=== PATIENT | female | born 1980 | race Caucasian/White ===

== ENCOUNTER → 2017-03-30 | Outpatient (CLI) | payer BC ==
[~2017-03-30] MED LIST: OMEP40CA PO; RIZA5TAB10 PO
[2017-03-30 10:55] LABS: BASO ABS # 0.07 K/uL (0-0.2); COMPLETE YES; EOS % 6.3 %; HEMATOCRIT 41.7 % (37-47); IG% 0.1 %; LYMPH ABS # 2.53 K/uL (1.2-3.4); MEAN CELL VOLUME 83.7 fL (80-100); MEAN CORPUSCULAR HEMOGLOBIN 28.1 pg (25-34); MEAN CORPUSCULAR HGB CONC 33.6 g/dl (32-36); MEAN PLATELET VOLUME 9.8 fL (7.4-10.4); MONO % 5.8 %; NEUT % 50.8 %; PLATELET COUNT 272 K/uL (130-400); RED BLOOD COUNT 4.98 M/uL (4.2-5.4); WHITE BLOOD COUNT 7.02 K/uL (4.8-10.8)
[2017-03-30 11:22] LABS: ALT/SGPT 18 U/L (12-78); AMYLASE 66 U/L (25-115); BLOOD UREA NITROGEN 12 mg/dl (7-18); BUN/CREATININE RATIO 15.2 (10-20); C-REACTIVE PROTEIN < 0.29 mg/dl (0-0.29); CALCIUM 9.2 mg/dl (8.5-10.1); CARBON DIOXIDE 25 mmol/L (21-32); CHLORIDE 106 mmol/L (98-107); CREATININE 0.81 mg/dl (0.60-1.20); GLUCOSE 84 mg/dl (70-99); POTASSIUM 4.1 mmol/L (3.5-5.1); SODIUM 137 mmol/L (136-145)
[2017-03-30 11:33] LABS: ALB/GLOB RATIO 1.2 (0.9-2); ALKALINE PHOSPHATASE 58 U/L (45-117); AST/SGOT 10 U/L (15-37)
[2017-04-02 16:35] LABS: IGA SERUM 252 mg/dL (81-463); TIS TRANS IGA 1 U/mL (<4)
== END | disposition home or self-care (01) ==
LOC: C.LAB1850 10:04
PROVIDERS: ATTEND Registered Nurse
DX: K21.0 Gastro-esophageal reflux disease with esophagitis (principal); R10.11 Right upper quadrant pain

== ENCOUNTER → 2017-03-30 | Day surgery (SDC) | payer BC ==
[2017-03-29 09:07] VITALS: BMI 28.0
[~2017-03-30] VITALS: Ht 154.9 cm; Wt 67.3 kg
[~2017-03-30] MED LIST changes: +LIDOCAINE HCL 2% 2 ML VIAL (20MG/ML) ONE; +MIDAZOLAM HCL 1 MG/ML 2ML VIAL ONE; +PROPOFOL IV EMULSION 10 MG/ML 20 ML VIAL IV ONE
[2017-03-30 11:05] VITALS: Ht 154.9 cm; Wt 67.3 kg
--- NOTE | 2017-03-30 12:19 | Endo History and Physical ---
History & Physical Date of Service: Mar 30, 2017. Chief Complaint: Abd pain & nausea Referring Physician: Dr. Cabral History of Present Illness 36 yo CF who presents for EGD secondary to abdominal pain and nausea. Past Surgical History Hx Cardiac Surgery: No Hx Internal Defibrillator: No Hx Pacemaker: No Hx Abdominal Surgery: Yes (APPENDECTOMY) Hx of Implantable Prosthesis: No Hx Post-Op Nausea and Vomiting: No Hx Cancer Surgery: No Hx Thoracic Surgery: No Hx Orthopedic: No Hx Urinary Tract Surgery: No Social History Smoking Status: Never Smoker Hx Substance Use: No Hx Alcohol Use: Yes (OCC SOCIAL) Allergies Coded Allergies: No Known Allergies (Verified , 03/30/17) Current Medications Reported Home Medications Medications Dose Route/Sig Max Daily Dose Days Date Category Dose Instructions Maxalt (Rizatriptan Benzoate) 5 Mg Tab 5 Mg PO UD PRN 03/29/17 Reported Prilosec (Omeprazole) 40 Mg Capcr 40 Mg PO QAM 11/01/13 Reported TAKE 30 MINUTES BEFORE THE FIRST MEAL OF THE DAY. Vital Signs Weight (Kilograms): 67.27 Height (Feet): 5 Height (Inches): 1 Date Time Temp Pulse Resp B/P (MAP) Pulse Ox O2 Delivery O2 Flow Rate FiO2 03/30/17 11:10 36.7 78 18 109/76 (87) 100 Room Air Physical Exam General Appearance: WD/WN, no apparent distress Respiratory/Chest: Auscultation: breath sounds normal Cardiovascular: Heart Auscultation: RRR Abdomen: Bowel Sounds: normal Inspection & Palpation: soft, non-distended, no tenderness, guarding & rebound Assessment and Plan Assessment: 36 yo CF who presents for EGD secondary to abdominal pain and nausea. Plan: Proceed with EGD
--- NOTE | 2017-03-30 12:39 | Discharge Instructions ---
Endoscopy Patient Instructions Date / Procedure(s) Performed Mar 30, 2017. EGD Allergy Information Coded Allergies: No Known Allergies (Verified , 03/30/17) Discharge Date / Findings Mar 30, 2017. Esophagitis s/p brushings Gastric antrum biopsies Medication Instructions OK to resume all medications today as prescribed Reported Home Medications Medications Dose Route/Sig Max Daily Dose Days Date Category Dose Instructions Maxalt (Rizatriptan Benzoate) 5 Mg Tab 5 Mg PO UD PRN 03/29/17 Reported Prilosec (Omeprazole) 40 Mg Capcr 40 Mg PO QAM 11/01/13 Reported TAKE 30 MINUTES BEFORE THE FIRST MEAL OF THE DAY. Provider Instructions Activity Restrictions - No exercising or heavy lifting for 24 hours. - Do not drink alcohol the day of the procedure. - Do not drive a car or operate machinery until the day after the procedure. - Do not make any important decisions or sign important papers in 24 hours after the procedure. Following Day: - Return to full activity which may include returning to work/school. Diet Start your diet with liquids and light foods (jello, soup, juice, toast). Then eat your usual diet if not nauseated. Treatment For Common After Affects For mild abdominal pain, bloating, or excessive gas: - Rest - Eat lightly - Lie on right side Follow-Up Information Follow-up with Dr. Cabral as scheduled Anesthesia Information What You Should Know You have had a procedure that required some medicine to reduce anxiety and discomfort. This treatment is called moderate sedation. After receiving the treatment, you may be sleepy, but you will be able to breathe on your own. The effects of the treatment may last for several hours. Follow these instructions along with Activity/Diet recommendations noted above: * Do NOT do anything where dizziness or clumsiness would be dangerous. * Rest quietly at home today, then you can be up and about tomorrow. * Have a responsible person stay with you the rest of today. * You may have had an I.V. today. If so, you may take the dressing off later today. Recommendations Call your doctor if: * Trouble breathing * Continuous vomiting for more than 24 hours * Temperature above 101 degrees * Severe abdominal pain or bloating * Pain not relieved by pain medicine ordered * There is increased drainage or redness from any incision * A large amount of rectal bleeding greater than 2-3 tablespoons. (If you had a polyp/s removed or have hemorrhoids, a small amount of blood - from the rectum is to be expected.) * You have any unanswered questions or concerns. IN THE EVENT OF A SERIOUS EMERGENCY, GO TO THE NEAREST EMERGENCY ROOM Your discharge instructions were prepared by provider Jay Evans. Patient Instructions Signature Page Petros Chonparveen Patient (or Guardian) Signature/Date: I have read and understand the instructions given to me by my caregivers. Caregiver/RN/Doctor Signature/Date: The above-named patient and/or guardian has received patient instructions on this date. + Original Patient Signature Page (only) stays with chart. Please make copy for patient.
--- NOTE | 2017-03-30 12:50 | GI REPORT ---
Procedure Date: 03/30/2017 11:57 AM Procedure: Upper GI endoscopy Indications: Epigastric abdominal pain, Nausea Medicines: Monitored Anesthesia Care Complications: No immediate complications. Estimated Blood Loss: Estimated blood loss: none. Procedure: Pre-Anesthesia Assessment: - Prior to the procedure, a History and Physical was performed, and patient medications and allergies were reviewed. The patient's tolerance of previous anesthesia was also reviewed. The risks and benefits of the procedure and the sedation options and risks were discussed with the patient. All questions were answered, and informed consent was obtained. Prior Anticoagulants: The patient has taken no previous anticoagulant or antiplatelet agents. ASA Grade Assessment: II - A patient with mild systemic disease. After reviewing the risks and benefits, the patient was deemed in satisfactory condition to undergo the procedure. After obtaining informed consent, the endoscope was passed under direct vision. Throughout the procedure, the patient's blood pressure, pulse, and oxygen saturations were monitored continuously. The scope was introduced through the mouth, and advanced to the second part of duodenum. The upper GI endoscopy was accomplished without difficulty. The patient tolerated the procedure well. Findings: Mildly severe esophagitis with no bleeding was found. Cells for cytology were obtained by brushing. The entire examined stomach was normal. Biopsies were taken with a cold forceps for histology. The examined duodenum was normal. Impression: - Mildly severe candidiasis esophagitis. Cells for cytology obtained. - Normal stomach. Biopsied. - Normal examined duodenum. Recommendation: - Resume previous diet. - Continue present medications. - Await pathology results. - Return to primary care physician as previously scheduled. Jay Evans DO 03/30/2017 12:50:08 PM This report has been signed electronically. Note Initiated On: 03/30/2017 11:57 AM I attest to the content of the Intraoperative Record and orders documented therein, exceptions below
[2017-03-30 13:07] VITALS: BP 107/70; PULSE 60; O2SAT 100
--- NOTE | 2017-03-30 14:15 | Anesthesiology Progress Note ---
Anesthesia Post Op Note Date & Time Mar 30, 2017 at 14:15 Vital Signs Pain Intensity: 0 Vital Signs Past 12 Hours Date Time Temp Pulse Resp B/P (MAP) Pulse Ox O2 Delivery O2 Flow Rate FiO2 03/30/17 13:07 60 18 107/70 (82) 100 Room Air 03/30/17 12:51 68 18 110/74 (86) 100 Room Air 03/30/17 12:36 68 18 121/66 (84) 100 Room Air 03/30/17 11:10 36.7 78 18 109/76 (87) 100 Room Air Notes Mental Status: alert / awake / arousable, participated in evaluation Pt Amnestic to Procedure: Yes Nausea / Vomiting: adequately controlled Pain: adequately controlled Airway Patency, RR, SpO2: stable & adequate BP & HR: stable & adequate Hydration State: stable & adequate Anesthetic Complications: no major complications apparent
== END | disposition home or self-care (01) ==
LOC: C.GI 10:27
PROVIDERS: ATTEND Internal Medicine
DX: R10.13 Epigastric pain (principal); R11.0 Nausea; Z90.49 Acquired absence of other specified parts of digestive tract; K21.0 Gastro-esophageal reflux disease with esophagitis; R10.11 Right upper quadrant pain

== ENCOUNTER → 2017-05-04 | Outpatient (CLI) | payer BC ==
[~2017-05-04] MED LIST changes: -LIDOCAINE HCL 2% 2 ML VIAL (20MG/ML) ONE; -MIDAZOLAM HCL 1 MG/ML 2ML VIAL ONE; -PROPOFOL IV EMULSION 10 MG/ML 20 ML VIAL IV ONE
--- NOTE | 2017-05-04 16:27 | DIAGNOSTIC IMAGING REPORT ---
CT OF THE SINUSES WITHOUT CONTRAST FUSION PROTOCOL CLINICAL HISTORY: Decreased sense of smell. Sinonasal congestion. COMPARISON STUDY: MRI of the brain September 30, 2009. TECHNIQUE: Axial images of the sinuses were obtained without IV contrast according to Fusion protocol. Coronal reformats were viewed. FINDINGS: Large water attenuation structures occupy the majority of the bilateral maxillary sinuses and likely reflect large mucus retention cysts which are increased in size when compared to MRI September 30, 2009. There are also secretions within the left maxillary and left sphenoid sinuses. There is mild to moderate polypoid mucosal thickening of the ethmoid sinuses. The right ostiomeatal complex is occluded as is the right sphenoethmoidal recess. There is no bony destruction. Cribriform plate is intact. Orbits are unremarkable. There is mild S-shaped deviation the nasal septum with spur formation. Mastoid air cells are clear. There is no fluid within the middle ears. Visualized portions of the intracranial contents are unremarkable this unenhanced exam. IMPRESSION: 1. Large water attenuation structures within the bilateral maxillary sinuses suggestive of large mucous retention cysts. 2. Moderate bubbly secretions within the left maxillary and sphenoid sinuses which can reflect acute sinusitis. 3. Mild to moderate mucosal thickening of the ethmoid sinuses with occluded right ostiomeatal complex and right sphenoethmoidal recess. Electronically signed by: Nicholas Espinosa M.D. 05/04/2017 4:26 PM Dictated Date/Time: 05/04/2017 3:59 PM
== END | disposition home or self-care (01) ==
LOC: C.CTS 15:42
DX: R43.8 Other disturbances of smell and taste (principal); J34.89 Other specified disorders of nose and nasal sinuses

== ENCOUNTER → 2017-06-06 | Outpatient (CLI) | payer BC ==
[2017-06-06 10:45] LABS: BASO % 0.8 %; BASO ABS # 0.05 K/uL (0-0.2); COMPLETE YES; EOS % 5.7 %; IG% 0.2 %; LYMPH % 34.1 %; MEAN CORPUSCULAR HEMOGLOBIN 28.2 pg (25-34); MEAN CORPUSCULAR HGB CONC 32.8 g/dl (32-36); MEAN PLATELET VOLUME 10.2 fL (7.4-10.4); MONO % 6.2 %; PLATELET COUNT 317 K/uL (130-400); WHITE BLOOD COUNT 6.45 K/uL (4.8-10.8)
[2017-06-06 10:53] LABS: PREG INTERNAL NEGATIVE QC NEG CLEAR BACKGROUND; PREG INTERNAL POSITIVE QC POS CONTROL LINE
[2017-06-06 10:56] LABS: PARTIAL THROMBOPLASTIN RATIO 1.1; PROTHROMBIN TIME (PATIENT) 10.3 SECONDS (9.0-12.0)
[2017-06-06 11:15] LABS: POTASSIUM 3.9 mmol/L (3.5-5.1)
== END | disposition home or self-care (01) ==
LOC: C.LABBC 07:34
DX: Z01.818 Encounter for other preprocedural examination (principal)

== ENCOUNTER → 2017-06-15 | Day surgery (SDC) | payer BC ==
[2017-06-05 15:33] VITALS: Ht 154.9 cm; Wt 67.3 kg
[~2017-06-15] VITALS: Ht 154.9 cm; Wt 67.3 kg
[~2017-06-15] MED LIST changes: +ATROPINE SULFATE 0.1 MG/ML 5ML SYR IV PRN; +CEFAZOLIN 2000 MG/60 ML D5W IV SCH; +DEXAMETHASONE SOD INJ 4 MG/ML VIAL ONE; +DiphenhydrAMINE HCL 50 MG/ML VIAL ONE; +EpHEDrine SULFATE INJ 50 MG/ML AMP IV PRN; +EpINEphrine INJ 1MG/ML AMP 1 MG/ML AMP ONE; +FENTANYL CITRATE INJ 50 MCG/1 ML 2 ML VIAL IV PRN; +FENTANYL CITRATE INJ 50 MCG/1 ML 2 ML VIAL ONE; +GLYCOPYRROLATE INJ 0.2 MG/ML VIAL ONE; +HYDROCODONE/ACETAMOPHEN 5/325MG TAB PO PRN; +LIDOCAINE 4% MPF SOAK 5 ML = 1 DOSE TOP ONE; +LIDOCAINE HCL 2% 2 ML VIAL (20MG/ML) ONE; +LIDOCAINE/EPINEPHRINE 1% INJ 50 ML VIAL ONE; +NEOSTIGMINE METHYLSULFATE 5 MG/5 ML SYR ONE; +NURSING VERBAL MED ORDER ONE; +ONDANSETRON INJ 2 MG/ML 2 ML VIAL IV PRN; +ONDANSETRON INJ 2 MG/ML 2 ML VIAL ONE; +OXYMETAZOLINE HCL 0.05% NA SPR 15 ML BTL PRN; +PROMETHAZINE HCL INJ 25 MG/ML 1 ML VIAL ONE; +PROPOFOL IV EMULSION 10 MG/ML 20 ML VIAL IV ONE
[2017-06-15] MEDS: LACTATED RINGER'S 1000ML 1,000 ML IV SCH ×2 (09:33→12:33)
--- NOTE | 2017-06-15 10:40 | History and Physical: Surg Cnt ---
History & Physical Date Jun 15, 2017. Chief Complaint SINUSITIS History of Present Illness The patient is a 36 year old female with complaints of RECURRENT ACUTE AND CHRONIC SINUSITIS REFRACTORY TO [employer]AL [employer] RX. Past Medical/Surgical History PMH: CRS, GERD PSH: S/P APPY, S/P BREAST BX, S/P CERVICAL CRYOSURGERY, S/P DENTAL EXTRACTIONS, S/P HYSTEROSCOPY, S/P TUBAL LIGATION Additional History Hepatic Disease: No Endocrine Disorder: No Kidney Disease: No Hypertension: No Heart Disease: No Bleeding Tendencies: No Infectious Diseases: No Allergies Coded Allergies: No Known Allergies (Verified , 06/15/17) Home Medications Scheduled Omeprazole (Prilosec), 40 MG PO QAM Scheduled PRN Rizatriptan Benzoate (Maxalt), 5 MG PO UD PRN for RN Physical Examination Skin: warm/dry, no rash Eyes: normal inspection, EOMI, sclerae normal ENT: + pertinent finding (MILD L DNS, MODERATE B ITH) Head: normocephalic, atraumatic Neck: supple, no adenopathy, trachea midline Respiratory/Chest: lungs clear, normal breath sounds, no respiratory distress Cardiovascular: regular rate, rhythm, no edema, no murmur Neurologic/Psych: no motor/sensory deficits, alert, normal reflexes, oriented x 3 Diagnosis CRS, DNS, B ITH Plan of Treatment IMAGE GUIDED B FESS AND INFERIOR TURBINATE REDUCTION, POSSIBLE SEPTOPLASTY
[2017-06-15] MEDS: OXYMETAZOLINE HCL 0.05% NA SPR 15 ML BTL SCH ×2 (10:50→10:56)
--- NOTE | 2017-06-15 12:01 | [facility] Operative Report ---
Operative Report Operative Date Jun 15, 2017. Pre-Operative Diagnosis Recurrent acute and chronic sinusitis, Bilateral Inferior Turbinate Hypertrophy, Left Merari Bullosa Post-Operative Diagnosis Same as preop Procedure(s) Performed Image-Guided Bilateral Endoscopic Sinus Surgery and Bilateral Inferior Turbinate Reduction, Left Merari Bullosa Resection Surgeon Dr. Urbina Nursing Program Coordinator Surgeon(s) None Estimated Blood Loss 25 mL Findings 1. L MERARI BULLOSA 2. B MAXILLARY SINUS MUCUS RETENTION CYSTS 3. POLYPOID MUCOSAL THICKENING B ETHMOID SINUSES 4. MILD MUCOSAL THICKENING B SPHENOID SINUSES 5. MODERATE B ITH 5. MILD B DNS (NON-OBSTRUCTIVE) Specimens A: Left maxillary sinus contents B: Right maxillary sinus contents I attest to the content of the Intraoperative Record and any orders documented therein. Any exceptions are noted below.
--- NOTE | 2017-06-15 12:04 | Discharge Instructions ---
Discharge Instructions Date of Service Jun 15, 2017. Admission Reason for Admission: Chronic Sinusitis Discharge Discharge Diagnosis / Problem: SAME Discharge Goals Goal(s): Therapeutic intervention Activity Recommendations Activity Limitations: as noted below LIGHT ACTIVITY AND NO NOSE BLOWING FOR 2 WEEKS; NO DRIVING WHILE ON NORCO . Current Hospital Diet Patient's current hospital diet: Discharge Diet Recommended Diet: Regular Diet Procedures Procedures Performed: Image-Guided Bilateral Endoscopic Sinus Surgery and Bilateral Inferior Turbinate Reduction, Left Angela Bullosa Resection Pending Studies Studies pending at discharge: no Medical Emergencies . Who to Call and When: Medical Emergencies: If at any time you feel your situation is an emergency, please call 911 immediately. . Non-Emergent Contact Non-Emergency issues call your: Surgeon . . "Provider Documentation" section prepared by Ervin Urbina. . VTE Core Measure Inpt VTE Proph given/why not?: SCD's
--- NOTE | 2017-06-15 12:31 | Anesthesia Progress Nt - [facility] ---
Anesthesia Post Op Note Date & Time Jun 15, 2017 at 12:31 Vital Signs Pain Intensity: 8.0 Vital Signs Past 12 Hours Date Time Temp Pulse Resp B/P (MAP) Pulse Ox O2 Delivery O2 Flow Rate FiO2 06/15/17 12:05 37.2 104 14 129/87 100 Humidified Oxygen 6 Mask 06/15/17 09:16 36.6 87 16 126/86 (99) 99 Room Air Notes Mental Status: alert / awake / arousable, participated in evaluation Pt Amnestic to Procedure: Yes Nausea / Vomiting: adequately controlled Pain: adequately controlled Airway Patency, RR, SpO2: stable & adequate BP & HR: stable & adequate Hydration State: stable & adequate Anesthetic Complications: no major complications apparent
--- NOTE | 2017-06-15 12:39 | OPERATIVE REPORT ---
DATE OF OPERATION: 06/15/2017 PREOPERATIVE DIAGNOSES: 1. Chronic rhinosinusitis. 2. Septal deviation. 3. Bilateral inferior turbinate hypertrophy. 4. Left rafael bullosa. POSTOPERATIVE DIAGNOSES: 1. Chronic rhinosinusitis. 2. Septal deviation. 3. Bilateral inferior turbinate hypertrophy. 4. Left rafael bullosa. PROCEDURES: Image guided bilateral endoscopic sinus surgery consisting of: 1. Bilateral maxillary antrostomies with tissue removal. 2. Bilateral complete ethmoidectomies. 3. Bilateral sphenoidotomies. 4. Endoscopic left rafael bullosa resection. 5. Bilateral inferior turbinate outfracture and turbinoplasties. SURGEON: Dr. Ervin Urbnia. ANESTHESIA: General endotracheal. ESTIMATED BLOOD LOSS: 25 mL. FINDINGS: 1. Left rafael bullosa. 2. Mild bilateral septal deviation, which appeared to be nonobstructive. 3. Moderate bilateral inferior turbinate hypertrophy. 4. Bilateral maxillary sinus mucous retention cyst. 5. Polypoid mucosal thickening involving the bilateral ethmoid sinuses. 6. Mild mucosal thickening involving the bilateral sphenoid sinuses. SPECIMENS: Right and left sinus contents for permanent pathological assessment. DRAINS: None. COMPLICATIONS: None. INDICATIONS FOR THE PROCEDURE: The patient is a pleasant 36-year-old female with a history of chronic rhinosinusitis with symptoms despite maximal medical therapy including systemic antibiotics and steroids. Posttreatment CT scan of the sinuses revealed bilateral maxillary, ethmoid and sphenoid sinus abnormalities as well as mild bilateral septal deviation and moderate bilateral inferior turbinate hypertrophy. The patient also has a left rafael bullosa. She presents for the above-mentioned procedures on an outpatient elective basis. DESCRIPTION OF PROCEDURE: After informed consent had been obtained from the patient, the patient was wheeled to the operating room and placed on the operating table in the supine position. Monitors were placed and after induction of general endotracheal anesthesia, the patient was prepped in the usual fashion for image guided endoscopic sinus surgery. The [employer] headset was placed over the forehead and was registered, calibrated and verified and used for the sphenoid sinus portions of the case primarily. Lidocaine and epinephrine pledgets were placed in the bilateral nasal cavities and pressure applied. The left-sided pledgets were first removed. A freer elevator was used to medialize the left middle turbinate. The left middle turbinate and uncinate process were injected with 1% lidocaine with 1:100,000 epinephrine. Lidocaine and epinephrine pledgets were then placed in the left middle meatus. The right side was then addressed in a similar fashion. The left-sided pledget was removed. A sickle knife was used to incise the middle turbinate longitudinally and the lateral half of the middle turbinate was removed using straight Steffen-Cut forceps and powered instrumentation in order to perform an endoscopic rafael bullosa resection. The uncinate process was then incised using a freer elevator and the uncinate process was removed using straight Steffen-Cut forceps and powered instrumentation. The natural ostium of the maxillary sinus was identified and this was enlarged anteriorly, inferiorly, and posteriorly using backbiting forceps and powered instrumentation. There was a large mucous retention cyst within the left maxillary sinus and the cyst wall was removed and sent for permanent pathological assessment. There was a thin serous fluid within the mucus retention cyst as well as mild amount of thick mucus as well. Care was taken to evacuate all of the mucus and serum as well as remove all of the mucous retention cyst wall. A complete ethmoidectomy was then performed using powered instrumentation. A transethmoid approach to the sphenoid sinus was undertaken and the natural ostium of the sphenoid sinus was enlarged medially and inferiorly using powered instrumentation. A lidocaine and epinephrine pledget was then placed in the left ethmoid cavity. The right side was then addressed in a similar fashion. There was not a rafael bullosa on the right side, but the middle turbinate was quite enlarged and therefore, the lateral half of the middle turbinate as well as the inferior 1/4 of the middle turbinate was removed using straight Steffen-Cut forceps and powered instrumentation. Similarly, there was a large mucous retention cyst and cyst wall was sent for permanent pathological assessment. Similarly, there was polypoid mucosal thickening involving the anterior and posterior ethmoid sinus during the complete ethmoidectomy. There was mild mucosal thickening involving the right sphenoid sinus. A Dan elevator was then used to infracture and subsequently outfracture the inferior turbinates bilaterally. These were injected with 1% lidocaine with 1:100,000 epinephrine. A 2.0-mm turbinate blade using powered instrumentation was then used to perform bilateral inferior turbinoplasties in a submucosal fashion. The sinonasal cavities were then suctioned. There was a mild amount of septal deviation, both to the right and the left. Into the right, it was anteriorly and did not appear to be obstructed. To the left, there was a bony septal spur and this was infractured using a Dan elevator, which greatly improved the left nasal airway posteriorly. Merogel was placed in the bilateral ethmoid cavities and middle meati. An orogastric tube was placed and the stomach was suctioned free of any stomach contents. This marked the end of the case. The patient tolerated the procedure well. There were no apparent complications. All the instrumentation was removed from the patient. The patient was extubated and transferred to recovery room in stable condition. I attest to the content of the Intraoperative Record and any orders documented therein. Any exception s are noted below.
[2017-06-15 13:36] VITALS: BP 100/68; PULSE 76; TEMP 37.3; O2SAT 98
== END | disposition home or self-care (01) ==
LOC: X.SURG 08:57
DX: J32.9 Chronic sinusitis, unspecified (principal); K21.9 Gastro-esophageal reflux disease without esophagitis; Z90.49 Acquired absence of other specified parts of digestive tract

== ENCOUNTER → 2018-01-14 | Outpatient (CLI) | payer BC ==
[~2018-01-14] MED LIST changes: -ATROPINE SULFATE 0.1 MG/ML 5ML SYR IV PRN; -CEFAZOLIN 2000 MG/60 ML D5W IV SCH; -DEXAMETHASONE SOD INJ 4 MG/ML VIAL ONE; -DiphenhydrAMINE HCL 50 MG/ML VIAL ONE; -EpHEDrine SULFATE INJ 50 MG/ML AMP IV PRN; -EpINEphrine INJ 1MG/ML AMP 1 MG/ML AMP ONE; -FENTANYL CITRATE INJ 50 MCG/1 ML 2 ML VIAL IV PRN; -FENTANYL CITRATE INJ 50 MCG/1 ML 2 ML VIAL ONE; -GLYCOPYRROLATE INJ 0.2 MG/ML VIAL ONE; -HYDROCODONE/ACETAMOPHEN 5/325MG TAB PO PRN; -LIDOCAINE 4% MPF SOAK 5 ML = 1 DOSE TOP ONE; -LIDOCAINE HCL 2% 2 ML VIAL (20MG/ML) ONE; -LIDOCAINE/EPINEPHRINE 1% INJ 50 ML VIAL ONE; -NEOSTIGMINE METHYLSULFATE 5 MG/5 ML SYR ONE; -NURSING VERBAL MED ORDER ONE; -ONDANSETRON INJ 2 MG/ML 2 ML VIAL IV PRN; -ONDANSETRON INJ 2 MG/ML 2 ML VIAL ONE; -OXYMETAZOLINE HCL 0.05% NA SPR 15 ML BTL PRN; -PROMETHAZINE HCL INJ 25 MG/ML 1 ML VIAL ONE; -PROPOFOL IV EMULSION 10 MG/ML 20 ML VIAL IV ONE
== END | disposition home or self-care (01) ==
LOC: C.PAPS 16:47
PROVIDERS: ATTEND Obstetrics & Gynecology
DX: Z01.419 Encounter for gynecological examination (general) (routine) without abnormal findings (principal)

== ENCOUNTER → 2018-01-21 | Outpatient (CLI) | payer BC ==
--- NOTE | 2018-01-21 08:38 | DIAGNOSTIC IMAGING REPORT ---
BILIARY ABDOMEN LIMITED CLINICAL HISTORY: 37 years-old Female presenting with RUQ PAIN. TECHNIQUE: Real-time grayscale and limited color Doppler ultrasound imaging of the abdomen limited to the right upper quadrant was performed. COMPARISON: 01/06/2015. FINDINGS: Pancreas: Visualized portions of the pancreatic head and body normal. Liver: Normal echogenicity and echotexture. No sonographic evidence of hepatic mass. Main portal vein patent with normal directional flow. Biliary: No intrahepatic biliary ductal dilatation. Common bile duct measures up to 4 mm in diameter. Gallbladder: No evidence of gallstones, gallbladder wall thickening, gallbladder distention, or pericholecystic fluid or inflammatory change. Right kidney: Normal in appearance without evidence of hydronephrosis. Ascites: None. Other: None. IMPRESSION: No cholelithiasis or biliary ductal dilatation. Electronically signed by: Chin Beltran M.D. 01/21/2018 8:37 AM Dictated Date/Time: 01/21/2018 8:35 AM
[2018-01-21 11:00] LABS: BASO % 0.7 %; BASO ABS # 0.05 K/uL (0-0.2); EOS % 5.4 %; EOS ABS # 0.39 K/uL (0-0.5); HEMATOCRIT 42.6 % (37-47); HEMOGLOBIN 14.3 g/dL (12.0-16.0); IG# 0.02 K/uL (0.00-0.02); LYMPH % 40.2 %; LYMPH ABS # 2.88 K/uL (1.2-3.4); MEAN CELL VOLUME 84.5 fL (80-100); MEAN CORPUSCULAR HEMOGLOBIN 28.4 pg (25-34); MEAN CORPUSCULAR HGB CONC 33.6 g/dl (32-36); MEAN PLATELET VOLUME 9.7 fL (7.4-10.4); MONO ABS # 0.36 K/uL (0.11-0.59); NEUT % 48.4 %; NEUT ABS # 3.46 K/uL (1.4-6.5); PLATELET COUNT 311 K/uL (130-400); RED CELL DISTRIBUTION WIDTH CV 13.8 % (11.5-14.5); RED CELL DISTRIBUTION WIDTH SD 42.7 fL (36.4-46.3); WHITE BLOOD COUNT 7.16 K/uL (4.8-10.8)
[2018-01-21 11:27] LABS: ALBUMIN 4.1 gm/dl (3.4-5.0); ALT/SGPT 21 U/L (12-78); AST/SGOT 12 U/L (15-37); BLOOD UREA NITROGEN 13 mg/dl (7-18); CALCIUM 8.8 mg/dl (8.5-10.1); CARBON DIOXIDE 30 mmol/L (21-32); CREATININE 0.83 mg/dl (0.60-1.20); GLUCOSE 82 mg/dl (70-99); LIPASE 168 U/L (73-393); POTASSIUM 3.7 mmol/L (3.5-5.1); SODIUM 139 mmol/L (136-145)
[2018-01-21 11:30] LABS: ALKALINE PHOSPHATASE 66 U/L (45-117); TOTAL PROTEIN 7.7 gm/dl (6.4-8.2)
== END | disposition home or self-care (01) ==
LOC: C.ULTRBC 08:07
PROVIDERS: ATTEND Registered Nurse
DX: R10.11 Right upper quadrant pain (principal)

== ENCOUNTER → 2018-01-30 | Outpatient (CLI) | payer BC ==
--- NOTE | 2018-01-30 13:31 | DIAGNOSTIC IMAGING REPORT ---
NUCLEAR GASTRIC EMPTYING STUDY HISTORY: Nausea. Vomiting. COMPARISON: Abdominal ultrasound 01/21/2018. TECHNIQUE: Following the oral administration of 1.2 mCi of technetium 99m sulfur colloid in egg sandwich and 8 ounces of water, static abdominal images are obtained anteriorly and posteriorly at 0 minutes, 1 hour, 2 hour, and 4 hour time intervals. Gastric emptying was calculated utilizing the geometric mean method. FINDINGS: There is approximately 81% activity remaining at the 1 hour time interval (normal is less than 90%), 47% remaining at the 2 hour time interval (normal is less than 60%), and 1% activity remaining at the 4 hour time interval (normal is less than 10%). IMPRESSION: No evidence for delayed gastric emptying. Electronically signed by: Geo Murillo M.D. 01/30/2018 1:30 PM Dictated Date/Time: 01/30/2018 1:29 PM
== END | disposition home or self-care (01) ==
LOC: C.NUCL 08:45
PROVIDERS: ATTEND Physician Assistant
DX: R11.2 Nausea with vomiting, unspecified (principal)

== ENCOUNTER → 2018-02-08 | Outpatient (CLI) | payer BC ==
[~2018-02-08] MED LIST changes: +SINCALIDE INJ 1.4 MCG in SODIUM CHLORIDE 0.9% 100ML 100 ML IV SCH
--- NOTE | 2018-02-08 15:18 | DIAGNOSTIC IMAGING REPORT ---
NUCLEAR HEPATOBILIARY SCAN WITH EJECTION FRACTION IMAGING CLINICAL HISTORY: Right upper quadrant abdominal pain. Nausea. COMPARISON STUDY: Abdominal ultrasound dated 01/21/2018.. TECHNIQUE: Dynamic images of the liver and anterior abdomen were obtained every 5 minutes for a total of 60 minutes following the IV administration of 5.4mCi of technetium 99m Choletec. 1.4 mcg of sincalide was then injected with additional images acquired every 5 minutes for 45 minutes to calculate the gallbladder ejection fraction. FINDINGS: The hepatobiliary scan shows prompt and homogeneous hepatic uptake. There is visualized activity within the intra and extrahepatic biliary tree at 10 minutes, and within the gallbladder at 50 minutes. There is normal biliary to bowel transit, with small bowel visualized by 30 minutes. On the sincalide imaging, the gallbladder ejection fraction was measured at 92%. IMPRESSION: 1. Unremarkable nuclear hepatobiliary scan. There is no scintigraphic evidence of cholecystitis. 2. The gallbladder ejection fraction measured 92% which is normal. Electronically signed by: Jamey Jenkins M.D. 02/08/2018 3:16 PM Dictated Date/Time: 02/08/2018 3:15 PM
== END | disposition home or self-care (01) ==
LOC: C.NUCL 12:31
PROVIDERS: ATTEND Physician Assistant
DX: R11.2 Nausea with vomiting, unspecified (principal); R10.11 Right upper quadrant pain

== ENCOUNTER 2022-11-28 02:37 | Observation (INO) ==
[2022-11-28] MEDS ORDERED: ONDANSETRON INJ 2 MG/ML 2 ML VIAL IV STA ×2 (03:02→04:41)
[2022-11-28] MEDS ORDERED: SODIUM CHLORIDE 0.9% 1000ML 1,000 ML IV STA (03:02)
[2022-11-28] MEDS ORDERED: KETOROLAC TROMETHAMINE 15 MG/ML VIAL IV STA (03:02)
[2022-11-28 03:18] LABS: Basophils # (auto) 0.06 K/uL (0-0.2); Basophils % (auto) 0.7 %; Eosinophils # (auto) 0.12 K/uL (0-0.50); Eosinophils % (auto) 1.3 %; Hematocrit (blood only) 41.5 % (37.0-47.0); Hemoglobin 14.1 g/dl (12.0-16.0); Immature Granulocytes # (auto) 0.03 K/uL (0.01-0.20); Immature Granulocytes % (auto) 0.3 %; Lymphocytes # (auto) 3.41 K/uL (1.2-3.4); Lymphocytes % (auto) 37.2 %; Mean Corpuscular Hemoglobin 29.1 pg (25.0-34.0); Mean Corpuscular Volume 85.6 fL (80.0-100.0); Mean Platelet Volume 9.8 fL (9.4-12.4); Monocytes # (auto) 0.54 K/uL (0.11-0.59); Monocytes % (auto) 5.9 %; Neutrophils % (auto) 54.6 %; Platelet Count 313 K/uL (130-400); RDW Coefficient of Variation 13.2 % (11.5-14.5); RDW Standard Deviation 41.2 fL (36.4-46.3); Red Blood Count 4.85 M/uL (4.20-5.40); White Blood Count 9.16 K/ul (4.8-10.8)
[2022-11-28 03:26] LABS: Appearance Urine Cloudy (Clear); Bacteria Urine Automated 1+ (Negative); Bilirubin Urine Negative (Negative); Blood Urine 3+ (Negative); Cast Urine Automated 0 /lpf (0-5); Color Urine Yellow; Epithelial Cell Urine Auto >30 /lpf (0-5); Glucose Urine UA Negative (Negative); Ketones Urine Negative (Negative); Leukocyte Esterase Urine Negative (Negative); Nitrite Urine Negative (Negative); Protein Urine Negative (Negative); RBC Urine Automated >30 /hpf (0-4); Specific Gravity Urine 1.025 (1.000-1.030); Urobilinogen Urine Negative (Negative); pH Urine 5.5 (4.5-7.5)
[2022-11-28 03:31] LABS: Albumin Level 5.1 gm/dl (3.4-5.0); BUN Creatinine Ratio 26.2 (10-20); Bilirubin,Total 0.3 mg/dl (0.2-1.0); Calcium 9.7 mg/dl (8.5-10.1); Creatinine Clr Calc Pharmacy 64.5 ml/min; Est GFR (African American) 78.2 ml/min; Est GFR (Non-African American) 67.5 ml/min; Globulin 2.6 gm/dl (2.5-4.0); Potassium 3.5 mmol/L (3.5-5.1); Total Protein 7.7 gm/dl (6.0-8.3)
[2022-11-28 03:32] LABS: Pregnancy Test, Serum Negative (Negative)
--- NOTE | 2022-11-28 03:54 | Emergency Department Note ---
ED Provider Note History of Present Illness Chief Complaint: Flank Pain Stated Complaint: LEFT FLANK PAIN Time Seen by Provider: 11/28/22 02:55 This 42-year-old female patient presents to the emergency department today via private vehicle for evaluation of left flank pain. Pain came on suddenly at approximately 115 this morning. The patient states it is associated with nausea but no vomiting. She denies any dysuria, urinary frequency, urinary hesitancy, hematuria. No abnormal vaginal bleeding or discharge. The patient states she had an ablation and has not had a period in several years. She denies any recent fever or illness. She denies history of similar symptoms. She had taken a Maxalt earlier in the evening and notes that does cause some urinary frequency, but has not noted this to be different than usual. She did take 2 Tylenol earlier in the evening due to some mild low back aching and notes no improvement in her symptoms Home Medications Medication Instructions Recorded Confirmed Type hydrocortisone 2.5 % topical 1 applic topical BID #28.35 grams 11/11/21 11/28/22 Rx ointment rizatriptan 10 mg tablet See Rx Instructions PO .COMPLEX 04/27/22 11/28/22 Rx #12 tabs dupilumab 300 mg/2 mL subcutaneous 300 mg (2 mL) subcut .COMPLEX 09/26/22 11/28/22 Rx syringe (Dupixent) NASAL POLYPS, SINUSITIS #4 mL topiramate 25 mg tablet 25 mg PO DAILY #30 tabs 09/26/22 11/28/22 Rx topiramate 50 mg tablet 50 mg PO HS #30 tabs 09/26/22 11/28/22 Rx pantoprazole 40 mg tablet,delayed 40 mg PO BID #180 tabs 11/10/22 11/28/22 Rx release Allergies Allergy/AdvReac Type Severity Reaction Status Date / Time No Known Drug Allergies Allergy Unknown Verified 11/28/22 02:51 Past Med/Surg History Medical History Chronic sinusitis GERD (gastroesophageal reflux disease) History of migraine Hx of thyroiditis monitoring. Hyperthyroidism no medications -- monitoring currently. following with [facility]. 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 Grandmother (Maternal) Diabetes Breast cancer Grandmother (Paternal) Cancer Aunt Thyroid nodule Other Hypertension No family history of adverse response to anesthesia No family history of bleeding disorder Denies family history of Ovarian cancer Crohn's disease Myocardial infarction Colorectal cancer Social History Smoking Status: Never smoker Second Hand Exposure: Yes ( A CHILD); Hx Alcohol Use: Yes Alcohol type: beer Alcohol Intake Frequency: Monthly or Less Alcohol Intake Frequency Comment: one a month maybe? 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 Feels Safe at Home: Yes Childhood Exposure to Second-Hand Smoke: Yes caffeine: Yes Dental Care, Regularly: Yes Physical Activity Frequency: Daily Physical Activity Frequency Comment: exercise work out at home 1 hr daily Seatbelt Use: always Sunscreen Use: Yes Assistive Devices: Contacts and Glasses Physical Exam Vital Signs Vital Signs - 24 hr 11/28/22 02:40 11/28/22 02:55 11/28/22 03:07 Temperature 36.3 C L Temperature Source Temporal Artery Scan Pulse Rate 103 H 92 H Pulse Rate [Finger] Respiratory Rate 24 Respiratory Effort / Characteristics Non-Labored Spontaneous Respiratory Depth Normal Blood Pressure 146/83 H Blood Pressure [Right Arm] Blood Pressure Mean 104 Blood Pressure Mean [Right Arm] Pulse Oximetry 100 100 Oxygen Delivery Method Room Air Room Air Sepsis Recent Fever Within 48 Hours No Sepsis New/Unexplained Change in Mental Status N/A Sepsis Action Taken by Nursing No Action Required 11/28/22 04:48 11/28/22 07:00 Temperature Temperature Source Pulse Rate Pulse Rate [Finger] 93 H 88 Respiratory Rate 20 18 Respiratory Effort / Characteristics Non-Labored Spontaneous Respiratory Depth Normal Blood Pressure Blood Pressure [Right Arm] 129/84 116/79 Blood Pressure Mean Blood Pressure Mean [Right Arm] 99 91 Pulse Oximetry 100 99 Oxygen Delivery Method Room Air Room Air Sepsis Recent Fever Within 48 Hours Sepsis New/Unexplained Change in Mental Status Sepsis Action Taken by Nursing VITALS: Vitals are noted on the nurse's note and reviewed by myself. Vital signs stable. GENERAL: This is a 42-year-old female, in no acute distress, nondiaphoretic, well-developed well-nourished. SKIN: The skin was without rashes, erythema, edema, or bruising. There is no tenting of the skin. Capillary refill less than 2 seconds. HEAD: Normocephalic atraumatic. EYES: Conjunctivae without injection, sclerae without icterus. NOSE: Patent, turbinates without inflammation or discharge. No sinus tenderness. MOUTH: Mucous membranes moist. Tonsils are not enlarged. Pharynx without eryth surjit or exudate. Uvula midline. Airway patent. Tongue does not deviate. NECK: Supple without nuchal rigidity. No lymphadenopathy. No JVD. HEART: Regular rate and rhythm without murmurs gallops or rubs. LUNGS: Clear to auscultation bilaterally without wheezes, rales or rhonchi. No retractions or accessory muscle use. ABDOMEN: Positive bowel sounds x 4. Soft, nontender, without masses or org anomegaly. Left CVA tenderness. No guarding or rebound tenderness. MUSCULOSKELETAL: No muscle atrophy, erythema, or edema noted. Full range of motion without joint tenderness in all extremities. No tenderness to palpation. Normal gait. Strength 5/5 throughout. NEURO: Patient was alert and oriented to person place and time. No focal neurological deficits. Course Course The patient was seen and evaluated as above. An order was placed for continuous cardiac monitoring. The monitor shows a normal sinus rhythm at a rate of 93 bpm. IV access obtained, labs drawn. Patient medicated with IV fluids, Zofran, Toradol. Imaging performed and reviewed by myself and radiologist as noted. Labs reviewed by myself. Patient continued to complain of pain. She noted the Toradol and Zofran did seem to help for a short time. She was medicated with acetaminophen and repeat dose of Zofran I reassessed the patient. She is tearful and complaining of persistent, severe pain. Patient was medicated with IV morphine I discussed the case with my attending. Recommended admission. Pt. agreeable. Pt. will be admitted to the [facility] group. I did speak with Dr. Billings who requested I speak with urology. I discussed the case with Dr. Figueredo. He did agree to consult on the patient. Administered Medications Morphine Sulfate (Morphine Sulfate 4 Mg/Ml 1 Ml Carp\Vial) 4 mg IV PRN PRN PRN Reason: Pain Stop: 12/12/22 06:10 Last Admin: 11/28/22 06:54 Dose: 4 mg Documented By: STEFANIA Discontinued Medications Sodium Chloride (Nss 1000ml) 1,000 mls @ 999 mls/hr IV .Q1H1M STA Stop: 11/28/22 04:02 Last Infusion: 11/28/22 04:42 Dose: 0 mls/hr Documented By: Admin: 11/28/22 03:12 Dose: 999 mls/hr Documented By: ISH Acetaminophen (Ofirmev) 1,000 mg in 100 mls @ 400 mls/hr IV NOW STA Stop: 11/28/22 04:55 Last Infusion: 11/28/22 05:00 Dose: 0 mls/hr Documented By: Admin: 11/28/22 04:45 Dose: 400 mls/hr Documented By: ISH Ketorolac Tromethamine (Ketorolac Tromethamine 15 Mg/Ml Vial) 15 mg IV NOW STA Stop: 11/28/22 03:03 Last Admin: 11/28/22 03:11 Dose: 15 mg Documented By: ISH Morphine Sulfate (Morphine Sulfate 4 Mg/Ml 1 Ml Carp\Vial) 4 mg IV NOW STA Stop: 11/28/22 05:43 Last Admin: 11/28/22 05:47 Dose: 4 mg Documented By: ISH Ondansetron HCl (Ondansetron Inj 2 Mg/Ml 2 Ml Vial) 4 mg IV NOW STA Stop: 11/28/22 03:03 Last Admin: 11/28/22 03:11 Dose: 4 mg Documented By: ISH Ondansetron HCl (Ondansetron Inj 2 Mg/Ml 2 Ml Vial) 4 mg IV NOW STA Stop: 11/28/22 04:42 Last Admin: 11/28/22 04:45 Dose: 4 mg Documented By: ISH Medical Decision Making Differential Diagnosis Renal colic, UTI, appendicitis, diverticulitis, mesenteric ischemia, aortic pathology, ovarian cyst, ovarian torsion, GERD, as well as other pathologies. Medical Records Attestation: I reviewed the patient's medical records. Home Medications was personally reviewed by me Laboratory Data No leukocytosis, anemia, thrombocytopenia. Renal, hepatic function, and electrolytes without significant abnormality. hCG negative. Lipase 28. Urinalysis appears to be contaminated specimen with greater than 30,000 epithelial cells, 1+ bacteria, 3+ blood 11/28/22 02:55 11/28/22 02:55 Lab Results 11/28/22 11/28/22 11/28/22 Range/Units 02:55 02:55 02:55 WBC 9.16 (4.8-10.8) K/ul RBC 4.85 (4.20-5.40) M/uL Hgb 14.1 (12.0-16.0) g/dl Hct 41.5 (37.0-47.0) % MCV 85.6 (80.0-100.0) fL MCH 29.1 (25.0-34.0) pg MCHC 34.0 (32.0-36.0) g/dL RDW Std Deviation 41.2 (36.4-46.3) fL RDW Coeff of Kg 13.2 (11.5-14.5) % Plt Count 313 (130-400) K/uL MPV 9.8 (9.4-12.4) fL Immature Gran % (Auto) 0.3 % Neut % (Auto) 54.6 % Lymph % (Auto) 37.2 % [place] % (Auto) 5.9 % Eos % (Auto) 1.3 % Baso % (Auto) 0.7 % Neut # (Auto) 5.00 (1.40-6.50) K/uL Lymph # (Auto) 3.41 H (1.2-3.4) K/uL [place] # (Auto) 0.54 (0.11-0.59) K/uL Eos # (Auto) 0.12 (0-0.50) K/uL Baso # (Auto) 0.06 (0-0.2) K/uL Immature Gran # (Auto) 0.03 (0.01-0.20) K/uL Sodium 139 (136-145) mmol/L Potassium 3.5 (3.5-5.1) mmol/L Chloride 106 (98-107) mmol/L Carbon Dioxide 25 (21-32) mmol/L Anion Gap 8 (3-11) BUN 27 H (6-23) mg/dl Creatinine 1.03 (0.6-1.2) mg/dl Est Cr Clr Drug Dosing 64.5 ml/min Est GFR ( Amer) 78.2 ml/min Est GFR (Non-Af Amer) 67.5 ml/min BUN/Creatinine Ratio 26.2 H (10-20) Glucose 99 (70-99(Fasting)) mg/dl Calcium 9.7 (8.5-10.1) mg/dl Total Bilirubin 0.3 (0.2-1.0) mg/dl AST 13 (13-39) U/L ALT 11 (7-52) U/L Alkaline Phosphatase 50 (34-104) U/L Total Protein 7.7 (6.0-8.3) gm/dl Albumin 5.1 H (3.4-5.0) gm/dl Globulin 2.6 (2.5-4.0) gm/dl Albumin/Globulin Ratio 2.0 (0.9-2) Lipase 28 (11-82) U/L HCG, Qual Negative (Negative) Urine Color Urine Appearance (Clear) Urine pH (4.5-7.5) Ur Specific [place] (1.000-1.030) Urine Protein (Negative) Urine Glucose (UA) (Negative) Urine Ketones (Negative) Urine Blood (Negative) Urine Nitrite (Negative) Urine Bilirubin (Negative) Urine Urobilinogen (Negative) Ur Leukocyte Esterase (Negative) Urine WBC (Auto) (0-5) /hpf Urine RBC (Auto) (0-4) /hpf U Hyaline Cast (Auto) (0-5) /lpf U Epithel Cells (Auto) (0-5) /lpf Urine Bacteria (Auto) (Negative) SARS-CoV-2, RNA, NAAT (NEGATIVE) 11/28/22 11/28/22 Range/Units 03:15 05:50 WBC (4.8-10.8) K/ul RBC (4.20-5.40) M/uL Hgb (12.0-16.0) g/dl Hct (37.0-47.0) % MCV (80.0-100.0) fL MCH (25.0-34.0) pg MCHC (32.0-36.0) g/dL RDW Std Deviation (36.4-46.3) fL RDW Coeff of Kg (11.5-14.5) % Plt Count (130-400) K/uL MPV (9.4-12.4) fL Immature Gran % (Auto) % Neut % (Auto) % Lymph % (Auto) % [place] % (Auto) % Eos % (Auto) % Baso % (Auto) % Neut # (Auto) (1.40-6.50) K/uL Lymph # (Auto) (1.2-3.4) K/uL [place] # (Auto) (0.11-0.59) K/uL Eos # (Auto) (0-0.50) K/uL Baso # (Auto) (0-0.2) K/uL Immature Gran # (Auto) (0.01-0.20) K/uL Sodium (136-145) mmol/L Potassium (3.5-5.1) mmol/L Chloride (98-107) mmol/L Carbon Dioxide (21-32) mmol/L Anion Gap (3-11) BUN (6-23) mg/dl Creatinine (0.6-1.2) mg/dl Est Cr Clr Drug Dosing ml/min Est GFR ( Amer) ml/min Est GFR (Non-Af Amer) ml/min BUN/Creatinine Ratio (10-20) Glucose (70-99(Fasting)) mg/dl Calcium (8.5-10.1) mg/dl Total Bilirubin (0.2-1.0) mg/dl AST (13-39) U/L ALT (7-52) U/L Alkaline Phosphatase (34-104) U/L Total Protein (6.0-8.3) gm/dl Albumin (3.4-5.0) gm/dl Globulin (2.5-4.0) gm/dl Albumin/Globulin Ratio (0.9-2) Lipase (11-82) U/L HCG, Qual (Negative) Urine Color Yellow Urine Appearance Cloudy A (Clear) Urine pH 5.5 (4.5-7.5) Ur Specific [place] 1.025 (1.000-1.030) Urine Protein Negative (Negative) Urine Glucose (UA) Negative (Negative) Urine Ketones Negative (Negative) Urine Blood 3+ H (Negative) Urine Nitrite Negative (Negative) Urine Bilirubin Negative (Negative) Urine Urobilinogen Negative (Negative) Ur Leukocyte Esterase Negative (Negative) Urine WBC (Auto) 10-30 H (0-5) /hpf Urine RBC (Auto) >30 H (0-4) /hpf U Hyaline Cast (Auto) 0 (0-5) /lpf U Epithel Cells (Auto) >30 H (0-5) /lpf Urine Bacteria (Auto) 1+ H (Negative) SARS-CoV-2, RNA, NAAT NEGATIVE (NEGATIVE) Imaging Data Attestation: I personally reviewed and interpreted this imaging study as follows: My Impression: 9mm left UPJ stone noted on CT imaging of the abdomen/pelvis, per my interpretation Radiologist's Impression: Abdomen/Pelvis CT 11/28/22 03:02 Exam(s): CT ABDOMEN + PELVIS Without Contrast EXAM: CT Abdomen and Pelvis Without Intravenous Contrast CLINICAL HISTORY: Reason for exam: left flank pain. TECHNIQUE: Axial computed tomography images of the abdomen and pelvis without intravenous contrast. CTDI is 15.89 mGy and DLP is 847.9 mGy-cm. Automated exposure control was utilized for the study. A dose lowering technique was utilized adhering to the principles of ALARA. COMPARISON: No relevant prior studies available. FINDINGS: Lung bases: Unremarkable. No mass. No consolidation. ABDOMEN: Liver: Unremarkable. Gallbladder and bile ducts: Unremarkable. No calcified stones. No ductal dilation. Pancreas: Unremarkable. No ductal dilation. Spleen: Unremarkable. No splenomegaly. Adrenals: Unremarkable. No mass. Kidneys and ureters: There is left-sided hydronephrosis due to the presence of a 9 mm diameter calculus at the left pelvic ureteric junction. There is 3 mm nonobstructing stone seen in the right kidney. Stomach and bowel: Unremarkable. No obstruction. No mucosal thickening. PELVIS: Appendix: No findings to suggest acute appendicitis. Bladder: Unremarkable. No stones. Reproductive: Unremarkable as visualized. ABDOMEN and PELVIS: Intraperitoneal space: Unremarkable. No free air. No significant fluid collection. Bones/joints: No acute fracture. No dislocation. Moderate L5/S1 chronic degenerative disc disease. Vasculature: Unremarkable. No abdominal aortic aneurysm. Lymph nodes: Unremarkable. No enlarged lymph nodes. IMPRESSION: Left hydronephrosis due to the presence of 9 mm left pelvic ureteric junction calculus Electronically signed by: Bentley Rose MD 11/28/22 06:29 AM MDM Narrative This 42-year-old female patient presents to the emergency department today for evaluation of sudden onset of left flank pain. Given the patient's history, highly concerned for kidney stone. CT imaging was completed and was consistent with a 9 mm left UPJ. Labs without evidence of infection. Urinalysis with 1+ bacteria but does appear to be contaminated specimen with greater than 30,000 epithelial cells. Patient's pain was difficult to control. She was medicated with multiple rounds of analgesics and ultimately did require narcotics. She required multiple rounds of antiemetics as well due to the nausea and vomiting. Due to the size and location of the stone, I did recommend admission for further management. The patient was agreeable. She will [facility]. Urology will consult. Please see hospitalist dictation regarding ongoing management and care of this patient. The chart was completed utilizing [employer] Speech voice recognition software. Grammatical errors, random word insertions, pronoun errors, and incomplete sentences are an occasional consequence of this system due to software limitations, ambient noise, and hardware issues. Any formal questions or concerns about the content, text, or information contained within the body of this dictation should be directly addressed to the provider for clarification. Impression Calculus of proximal left ureter, Left flank pain, Nausea & vomiting Discharge Plan Visit Data Chief Complaint: Flank Pain Stated Complaint: LEFT FLANK PAIN ED Provider: Sylvie Hartman ED Midlevel Provider: Colleen Maxwell Discharge Problem: Calculus of proximal left ureter, Left flank pain, Nausea & vomiting Patient Disposition: Admitted As Inpatient Condition: Good Forms Stand Alone Forms: My [facility], [facility] Emergency Department, Important Visit Information Prescriptions Prescriptions: No Action rizatriptan 10 mg tablet See Rx Instructions PO .COMPLEX Qty: 12 5RF Rx Instructions: take 1 tab at onset of headache; if no relief may repeat 1 tab after at least 2 hrs; max = 3 tabs/24 hr PO topiramate 50 mg tablet 50 mg PO HS Qty: 30 2RF topiramate 25 mg tablet 25 mg PO DAILY Qty: 30 2RF Dupixent Syringe 300 mg/2 mL syringe 300 mg subcut .COMPLEX Qty: 4 11RF Rx Instructions: 300 mg subcut EVERY 2 WEEKS APPROVED GOOD 02/03/22-04/04/23 pantoprazole 40 mg tablet,delayed release (DR/EC) 40 mg PO BID Qty: 180 3RF Rx Instructions: TAKE 1 TABLET BY MOUTH TWICE A DAY hydrocortisone 2.5 % ointment 1 applic topical BID Qty: 28.35 1RF Rx Instructions: Apply to areas of the ears twice daily for up to 10 days as needed for flaring. Referrals Referrals: Jose Worley DO [Primary Care Provider] -
[2022-11-28] MEDS ORDERED: ACETAMINOPHEN 1,000 MG/100 ML VIAL IV STA (04:41)
[2022-11-28] MEDS ORDERED: MoRPHine SULFATE 4 MG/ML 1 ML CARP\\VIAL IV STA (05:42)
[2022-11-28] MEDS ORDERED: ONDANSETRON INJ 2 MG/ML 2 ML VIAL IV PRN ×2 (06:11→09:39)
--- NOTE | 2022-11-28 06:30 | CT Scan Report ---
Exam(s): CT ABDOMEN + PELVIS Without Contrast EXAM: CT Abdomen and Pelvis Without Intravenous Contrast CLINICAL HISTORY: Reason for exam: left flank pain. TECHNIQUE: Axial computed tomography images of the abdomen and pelvis without intravenous contrast. CTDI is 15.89 mGy and DLP is 847.9 mGy-cm. Automated exposure control was utilized for the study. A dose lowering technique was utilized adhering to the principles of ALARA. COMPARISON: No relevant prior studies available. FINDINGS: Lung bases: Unremarkable. No mass. No consolidation. ABDOMEN: Liver: Unremarkable. Gallbladder and bile ducts: Unremarkable. No calcified stones. No ductal dilation. Pancreas: Unremarkable. No ductal dilation. Spleen: Unremarkable. No splenomegaly. Adrenals: Unremarkable. No mass. Kidneys and ureters: There is left-sided hydronephrosis due to the presence of a 9 mm diameter calculus at the left pelvic ureteric junction. There is 3 mm nonobstructing stone seen in the right kidney. Stomach and bowel: Unremarkable. No obstruction. No mucosal thickening. PELVIS: Appendix: No findings to suggest acute appendicitis. Bladder: Unremarkable. No stones. Reproductive: Unremarkable as visualized. ABDOMEN and PELVIS: Intraperitoneal space: Unremarkable. No free air. No significant fluid collection. Bones/joints: No acute fracture. No dislocation. Moderate L5/S1 chronic degenerative disc disease. Vasculature: Unremarkable. No abdominal aortic aneurysm. Lymph nodes: Unremarkable. No enlarged lymph nodes. IMPRESSION: Left hydronephrosis due to the presence of 9 mm left pelvic ureteric junction calculus Electronically signed by: Bentley Rose MD 11/28/22 06:29 AM
[2022-11-28] MEDS: MoRPHine SULFATE 4 MG/ML 1 ML CARP\\VIAL IV PRN ×3 (06:54→13:30)
[2022-11-28] MEDS ORDERED: HYDROmorphone INJ 0.5 MG/0.5 ML SYR IV STA ×2 (09:52→23:13)
--- NOTE | 2022-11-28 09:55 | History & Physical Report ---
Date of Service November 28, 2022 Assessment & Plan (1) Calculus of proximal left ureter: Plan: Acute renal colic moderate risk Possibility of acute renal urinary infection present on admission urine culture pending ceftriaxone administered patient be kept n.p.o. take taken to the OR for cystoscopy for stent placement. Parenteral fluids Flomax and bilateral be administered. As needed Toradol. Patient was placed on ceftriaxone perioperatively until urine cultures returned History of chronic migraine stable decision to continue on Topamax History of Present Illness Primary Care Provider: Jose Worley DO pt with left renal colic,significant pain. Patient did have 9 mm left UPJ stone with significant hydronephrosis. Patient denies infectious symptomatology. I consulted with urology which I spoke to personally emergency department we will take her for cystoscopy later today. Patient has a history of migraines which have been quiescent of late he is no family history of stones or personal history of stones Allergies Allergy/AdvReac Type Severity Reaction Status Date / Time No Known Drug Allergies Allergy Unknown Verified 11/28/22 02:51 Home Medications Medication Instructions Recorded Confirmed Type hydrocortisone 2.5 % topical 1 applic topical BID #28.35 grams 11/11/21 11/28/22 Rx ointment rizatriptan 10 mg tablet See Rx Instructions PO .COMPLEX 04/27/22 11/28/22 Rx #12 tabs dupilumab 300 mg/2 mL subcutaneous 300 mg (2 mL) subcut .COMPLEX 09/26/22 11/28/22 Rx syringe (Dupixent) NASAL POLYPS, SINUSITIS #4 mL topiramate 25 mg tablet 25 mg PO DAILY #30 tabs 09/26/22 11/28/22 Rx topiramate 50 mg tablet 50 mg PO HS #30 tabs 09/26/22 11/28/22 Rx pantoprazole 40 mg tablet,delayed 40 mg PO BID #180 tabs 11/10/22 11/28/22 Rx release Past Med/Surg History Medical History Chronic sinusitis GERD (gastroesophageal reflux disease) History of migraine Hx of thyroiditis monitoring. Hyperthyroidism no medications -- monitoring currently. following with [facility]. Motion sickness Nausea and vomiting after administration of anesthetic agent TMJ click never locked Surgical History H/O neck surgery lump removed (inflammed lump) H/O sinus surgery History of appendectomy History of cryosurgery cervix History of endometrial ablation 2011 History of esophagogastroduodenoscopy (EGD) History of tubal ligation History of wisdom tooth extraction Hx of breast surgery (12/02/19) Needle localization, excision of left breast mass. Dr. Jackson 12-02-19 Status post breast lumpectomy (~01/2020) Lt (benign) Family History Mother Migraine headache H/O: hysterectomy Thyroid nodule Unknown Diabetes Breast cancer Grandmother No problems noted. Grandmother (Maternal) Diabetes Breast cancer Grandmother (Paternal) Cancer throat Aunt Thyroid nodule thyroidectomy Other Hypertension No family history of adverse response to anesthesia No family history of bleeding disorder Denies family history of Ovarian cancer Crohn's disease Myocardial infarction Colorectal cancer Social History Smoking Status: Never smoker Second Hand Exposure: Yes ( A CHILD); Hx Alcohol Use: No Hx Substance Use: No Preferred Language: Spanish Communication Ability: Effective Visual Impairment: Limited Hearing Ability: Normal Elevated Guard Required: No Beliefs That Will Affect Care: None marital status: Current Living Situation: Spouse current occupational status: employed current occupation: [employer] Feels Safe at Home: Yes Childhood Exposure to Second-Hand Smoke: Yes caffeine: Yes Dental Care, Regularly: Yes Physical Activity Frequency: Daily Physical Activity Frequency Comment: exercise work out at home 1 hr daily Seatbelt Use: always Sunscreen Use: Yes Assistive Devices: Glasses Review of Systems Review of Systems: Patient is significant comfortable with colicky left flank pain which radiates toward her left CVA angle tenderness. She has had no pneumaturia Physical Exam Physical Exam: Awake alert appropriate in moderate to severe pain Cardiac exam is tachycardic but regular lungs are clear she has left CVA tenderness abdomen NABS soft left-sided tenderness no rebound or guarding extremities without edema Results & Data Results & [facility] ([facility]) Vital Signs (Past 12 Hours) Vital Signs Temp Pulse Pulse Resp BP BP Pulse Ox 11/28/22 08:54 78 11/28/22 09:00 85 16 118/88 99 11/28/22 07:00 88 18 116/79 99 11/28/22 04:48 93 H 20 129/84 100 11/28/22 03:07 100 11/28/22 02:55 92 H 11/28/22 02:40 97.3 F L 103 H 24 146/83 H 100 O2 Del Method 11/28/22 08:54 11/28/22 09:00 Room Air 11/28/22 07:00 Room Air 11/28/22 04:48 Room Air 11/28/22 03:07 Room Air 11/28/22 02:55 11/28/22 02:40 Room Air Laboratory Results Reviewed CBC Reviewed PRP Urine analysis reviewed Code Status & VTE Plan VTE Prophylaxis Plan VTE Prophylaxis will be ordered: Yes PG Care Time/CCT Total # of Minutes Spent Total Time Spent with Patient: Total time spent is greater than 50% in coordination of care (as documented) at patient's floor/unit and/or counseling patient: Coding Level of Care Code 04688 INT INP/OBS CARE 2/55MIN Diagnoses Calculus of proximal left ureter N20.1
[2022-11-28] MEDS ORDERED: cefTRIAXone SODIUM 2,000 MG/70 ML BAG IV STA (09:56)
--- NOTE | 2022-11-28 10:24 | Urology Consultation ---
I have discussed Ms. Crystal's case with YOMAIRA Amaya and agree with the above documentation. She has an obstructing left UPJ stone. We discussed the role for left ureteral stent placement to decompress her kidney. Hopefully this will help with the pain and if there is any infection present it will let this drain. We discussed risks and benefits of the surgery including bleeding, infection, injury to the urinary tract, inability to place the stent, need for additional treatment for the stone. She expressed understanding and willingness to proceed with surgery. Frederic Pradhan MD. Date of Consultation November 28, 2022 Assessment & Plan (1) Calculus of proximal left ureter: (2) Left flank pain: Plan 41yo/F admitted with intractable left flank pain secondary to an obstructing 9 mm left ureteral calculus. She is afebrile and hemodynamically stable. Labs show no leukocytosis and normal renal function. Urinalysis with 3+blood, 1+bacteria. Urine culture is pending. Patient to receive IV ceftriaxone in the ED. We discussed acute stone management with cystoscopy and stent placement. Ureteral stents were discussed as well as postoperative issues and pain management. She is aware that a second procedure will be necessary for definitive stone treatment. Patient agreeable to plan, all questions were answered. Will proceed to OR today for cystoscopy, left retrograde pyelogram, left ureteral stent placement. Risks and benefits to be reviewed with patient by Dr. Pradhan. OR notified. COVID test negative. Covered with scheduled IV ceftriaxone. Keep NPO. Continue supportive care, antibiotics, and pain management. Urology will follow. History of Present Illness History of Present Illness 42-year-old female who presented to the emergency department overnight due to sudden onset of left flank pain and found to have an obstructing 9 mm left UPJ stone with hydronephrosis. CT abdomen pelvis obtained and notable for a 9 mm calculus at the left ureteropelvic junction with left-sided hydronephrosis and a 3 mm nonobstructing stone in the right kidney. On arrival she was afebrile and hemodynamically stable. Labs show no leukocytosis and normal renal function. Urinalysis with 3+blood, 10-30WBC, >30RBC, 1+bacteria. Urine culture pending. Examined at bedside in the ED. Awake, resting in bed on arrival. No acute distress. Still with left flank pain, managing with prn medication. She denies fevers or chills. Some nausea no vomiting. Has been NPO. Voiding without issue. Denies hematuria or dysuria. Denies prior history of stones. Allergies Allergy/AdvReac Type Severity Reaction Status Date / Time No Known Drug Allergies Allergy Unknown Verified 11/28/22 02:51 Home Medications Medication Instructions Recorded Confirmed Type hydrocortisone 2.5 % topical 1 applic topical BID #28.35 grams 11/11/21 11/28/22 Rx ointment rizatriptan 10 mg tablet See Rx Instructions PO .COMPLEX 04/27/22 11/28/22 Rx #12 tabs dupilumab 300 mg/2 mL subcutaneous 300 mg (2 mL) subcut .COMPLEX 09/26/22 11/28/22 Rx syringe (Dupixent) NASAL POLYPS, SINUSITIS #4 mL topiramate 25 mg tablet 25 mg PO DAILY #30 tabs 09/26/22 11/28/22 Rx topiramate 50 mg tablet 50 mg PO HS #30 tabs 09/26/22 11/28/22 Rx pantoprazole 40 mg tablet,delayed 40 mg PO BID #180 tabs 11/10/22 11/28/22 Rx release Patient History Medical History Chronic sinusitis GERD (gastroesophageal reflux disease) History of migraine Hx of thyroiditis monitoring. Hyperthyroidism no medications -- monitoring currently. following with [facility]. 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 Grandmother (Maternal) Diabetes Breast cancer Grandmother (Paternal) Cancer Aunt Thyroid nodule Other Hypertension No family history of adverse response to anesthesia No family history of bleeding disorder Denies family history of Ovarian cancer Crohn's disease Myocardial infarction Colorectal cancer Social History Smoking Status: Never smoker Second Hand Exposure: Yes ( A CHILD); Hx Alcohol Use: Yes Alcohol type: beer Alcohol Intake Frequency: Monthly or Less Alcohol Intake Frequency Comment: one a month maybe? Hx Substance Use: No Preferred Language: Vietnamese Communication Ability: Effective Visual Impairment: Limited Hearing Ability: Normal Interstate Bus Driver Required: No Beliefs That Will Affect Care: None marital status: Current Living Situation: Spouse current occupational status: employed current occupation: Business Process Manager Feels Safe at Home: Yes Childhood Exposure to Second-Hand Smoke: Yes caffeine: Yes Dental Care, Regularly: Yes Physical Activity Frequency: Daily Physical Activity Frequency Comment: exercise work out at home 1 hr daily Seatbelt Use: always Sunscreen Use: Yes Assistive Devices: Contacts and Glasses Review of Systems Review of Systems: All systems reviewed & are unremarkable except as noted in HPI & below Physical Exam Constitutional: well developed and well nourished; no acute distress Eyes: PERRL, conjunctivae normal, anicteric sclerae ENMT: external ear and nose normal, oropharynx normal Neck: normal visual inspection Respiratory: normal respiratory effort; no respiratory distress and no labored breathing Musculoskeletal: Head/Neck/Chest: normocephalic Skin: No visible rashes or lesions to exposed skin areas Neurologic: moves all extremities and awake Psychiatric: A+Ox3, euthymic affect Genitourinary: + CVA tenderness (left) Results & Data ([facility]) Vital Signs (Past 12 Hours) Vital Signs Temp Pulse Pulse Resp BP BP Pulse Ox 11/28/22 08:54 78 11/28/22 09:00 85 16 118/88 99 11/28/22 07:00 88 18 116/79 99 11/28/22 04:48 93 H 20 129/84 100 11/28/22 03:07 100 11/28/22 02:55 92 H 11/28/22 02:40 36.3 C L 103 H 24 146/83 H 100 O2 Del Method 11/28/22 08:54 11/28/22 09:00 Room Air 11/28/22 07:00 Room Air 11/28/22 04:48 Room Air 11/28/22 03:07 Room Air 11/28/22 02:55 11/28/22 02:40 Room Air PG Care Time/CCT Total # of Minutes Spent Total Time Spent with Patient: Total time spent is greater than 50% in coordination of care (as documented) at patient's floor/unit and/or counseling patient: Coding Level of Care Code 00494 IN/OBS CONSULT LVL 4,60M Diagnoses Calculus of proximal left ureter N20.1 Left flank pain R10.9
--- NOTE | 2022-11-28 10:37 | Anesthesiology Consultation ---
Date of Service November 28, 2022 Assessment & Plan Chart Review Chart Review: Acceptable Risk for Surgery and Patient NOT seen in Pre Admission Testing History Surgery Operation Date: 11/28/22 10:40 Proposed Procedures p Cystoscopy, Left Retrograde Pyelogram, Left Stent Insertion - Frederic Pradhan MD Height/Weight Height: 5 ft 1 in Weight: 70.5 kg Allergies Allergy/AdvReac Type Severity Reaction Status Date / Time No Known Drug Allergies Allergy Unknown Verified 11/28/22 02:51 Medications Home Medications Medication Instructions Recorded Confirmed Last Taken hydrocortisone 2.5 % topical 1 applic topical BID #28.35 grams 11/11/21 11/28/22 Unknown ointment rizatriptan 10 mg tablet See Rx Instructions PO .COMPLEX 04/27/22 11/28/22 Unknown #12 tabs dupilumab 300 mg/2 mL subcutaneous 300 mg (2 mL) subcut .COMPLEX 09/26/22 11/28/22 Unknown syringe (Dupixent) NASAL POLYPS, SINUSITIS #4 mL topiramate 25 mg tablet 25 mg PO DAILY #30 tabs 09/26/22 11/28/22 Unknown topiramate 50 mg tablet 50 mg PO HS #30 tabs 09/26/22 11/28/22 Unknown pantoprazole 40 mg tablet,delayed 40 mg PO BID #180 tabs 11/10/22 11/28/22 Unknown release Active Medications Generic Name Dose Route Start Last Admin Trade Name Freq PRN Reason Stop Dose Admin Morphine Sulfate 4 mg 11/28/22 06:11 11/28/22 08:57 Morphine Sulfate 4 Mg/Ml 1 Ml Carp\Vial IV 12/12/22 06:10 4 mg PRN PRN Administration Pain Ondansetron HCl 4 mg 11/28/22 09:39 11/28/22 10:36 Ondansetron Inj 2 Mg/Ml 2 Ml Vial IV 12/28/22 09:38 4 mg Q4H PRN Administration Nausea Past Medical History Medical History Chronic sinusitis GERD (gastroesophageal reflux disease) History of migraine Hx of thyroiditis monitoring. Hyperthyroidism no medications -- monitoring currently. following with [facility]. Motion sickness Nausea and vomiting after administration of anesthetic agent TMJ click never locked Past Family History Family History Mother Migraine headache H/O: hysterectomy Thyroid nodule Unknown Diabetes Breast cancer Grandmother No problems noted. Grandmother (Maternal) Diabetes Breast cancer Grandmother (Paternal) Cancer throat Aunt Thyroid nodule thyroidectomy Other Hypertension No family history of adverse response to anesthesia No family history of bleeding disorder Denies family history of Ovarian cancer Crohn's disease Myocardial infarction Colorectal cancer Past Surgical History Surgical History H/O neck surgery lump removed (inflammed lump) H/O sinus surgery History of appendectomy History of cryosurgery cervix History of endometrial ablation 2011 History of esophagogastroduodenoscopy (EGD) History of tubal ligation History of wisdom tooth extraction Hx of breast surgery (12/02/19) Needle localization, excision of left breast mass. Dr. Jackson 12-02-19 Status post breast lumpectomy (~01/2020) Lt (benign) Social History Smoking Status: Never smoker Hx Alcohol Use: Yes Alcohol type: beer alcohol intake frequency: holidays/special occasions only Hx Substance Use: No substance use type: does not use Physical Exam Vital Signs Last Vital Signs Temp 36.3 C L 11/28/22 02:40 Pulse 85 11/28/22 09:00 Resp 16 11/28/22 09:00 BP 118/88 11/28/22 09:00 Pulse Ox 99 11/28/22 09:00 O2 Del Method Room Air 11/28/22 09:00 Testing Laboratory Results 11/28/22 02:55 11/28/22 02:55 Urine Color Yellow 11/28/22 03:15 Urine Appearance Cloudy (Clear) A 11/28/22 03:15 Urine pH 5.5 (4.5-7.5) 11/28/22 03:15 Ur Specific [place] 1.025 (1.000-1.030) 11/28/22 03:15 Urine Protein Negative (Negative) 11/28/22 03:15 Urine Glucose (UA) Negative (Negative) 11/28/22 03:15 Urine Ketones Negative (Negative) 11/28/22 03:15 Urine Nitrite Negative (Negative) 11/28/22 03:15 Ur Leukocyte Esterase Negative (Negative) 11/28/22 03:15 Urine WBC (Auto) 10-30 /hpf (0-5) H 11/28/22 03:15 Urine RBC (Auto) >30 /hpf (0-4) H 11/28/22 03:15 U Hyaline Cast (Auto) 0 /lpf (0-5) 11/28/22 03:15 U Epithel Cells (Auto) >30 /lpf (0-5) H 11/28/22 03:15 Urine Bacteria (Auto) 1+ (Negative) H 11/28/22 03:15
[2022-11-28] MEDS ORDERED: MIDAZOLAM HCL 1 MG/ML 2ML VIAL ONE (11:21)
[2022-11-28] MEDS ORDERED: fentaNYL citrate PF 100 MCG/2 ML VIAL ONE (11:21)
[2022-11-28] MEDS ORDERED: PROPOFOL IV EMULSION 10 MG/ML 20 ML VIAL IV ONE (11:39)
[2022-11-28] MEDS ORDERED: LIDOCAINE 2% MPF LOCAL 5 ML VIAL INFIL ONE (11:39)
[2022-11-28] MEDS ORDERED: ONDANSETRON INJ 2 MG/ML 2 ML VIAL ONE (11:39)
[2022-11-28] MEDS ORDERED: HYDROmorphone INJ 2 MG/ML SYR/VIAL IV PRN (11:44)
[2022-11-28] MEDS ORDERED: DROPERIDOL 5 MG/2 ML VIAL IV PRN (11:44)
[2022-11-28] MEDS ORDERED: fentaNYL citrate PF 100 MCG/2 ML VIAL IV PRN (11:44)
[2022-11-28] MEDS ORDERED: ATROPINE SULFATE 0.1 MG/ML 10ML SYR IV PRN (11:44)
[2022-11-28] MEDS ORDERED: ePHEDrine sulfate 50 MG/ML AMP IV PRN (11:44)
[2022-11-28] MEDS ORDERED: ceFAZolin 330 MG/ML 1 GM VIAL ONE (12:03)
--- NOTE | 2022-11-28 12:12 | Operative Report ---
PG Post Operative Report Pre & Post Diagnosis Operation Date: 11/28/22 10:40 Pre-Op Diagnosis: Calculus of proximal left ureter Post-Op Diagnosis: Calculus of proximal left ureter I identified the patient and participated in the time-out.: Yes Procedure Operation Date: 11/28/22 10:40 Actual Procedures p Cystoscopy, Left Retrograde Pyelogram, Left ureteral stent Insertion - Frederic Pradhan MD Surgeon Frederic Pradhan MD Machine Washer None Estimated Blood Loss 0 Findings Consistent with Post-Op Diagnosis Specimens Urine from left kidney for culture Drains 6 Norwegian by 24 cm double-J ureteral stent in left ureter Complications none Disposition Accompanied Patient To Recovery: Yes Disposition: Recovery Room Indications This is a 42-year-old female who presented to the emergency department with acute onset of left-sided flank pain. CT scan identified a 9 mm obstructing stone at the left UPJ. She presents to the OR for stent placement to help with her pain and decompress her kidney. Description of Procedure The patient was identified in the holding area and informed consent was confirmed. She was marked on the left side, then was taken to the operating room where anesthesia was initiated. She was placed in the dorsal lithotomy position with all pressure points appropriately padded. She was prepped and draped in the usual sterile fashion and a preoperative timeout was performed. A well-lubricated cystoscope was inserted per urethra and panendoscopy was performed. The urethra was normal in appearance. The bladder was of normal size with ureteral orifices in orthotopic position. The left ureteral orifice was identified and cannulated with a 5 Norwegian open- ended catheter. A retrograde pyelogram was performed demonstrating the ureter was normal in course and caliber. No strictures or extravasation were appreciated. There was mild hydronephrosis of the kidney as well as a transition point suspicious for the stone.. A 0.038" ZIPwire was advanced to the level of the kidney under fluoroscopic guidance. Over the wire, a 6 Norwegian x 24 centimeter double-J ureteral stent was advanced. When the wire was removed, the proximal curl was visualized in the kidney with x-ray, and the distal curl visualized in the bladder with the cystoscope. At this point the bladder was drained and all instrumentation was removed. The patient was then awakened from anesthesia and was brought to the PACU in stable condition. I attest to the content of the Intraoperative Record and any orders documented therein. Any exceptions are noted below.
[2022-11-28] MEDS ORDERED: DEXAMETHASONE SOD INJ 4 MG/ML VIAL ONE (12:14)
[2022-11-28] MEDS ORDERED: ceFAZolin 2000MG 2,000 MG/15 ML SYR IV ONE (12:28)
[2022-11-28] MEDS ORDERED: DIATRIZOATE MEGLUMINE 30% 100ML VIAL INSTIL ONE (12:30)
--- NOTE | 2022-11-28 12:44 | Fluoroscopy Report ---
FL retrograde includes kub CLINICAL HISTORY: LTleft-sided cystourethrogram COMPARISON STUDY: CT abdomen and pelvis 11/28/2022 FLUOROSCOPY TIME: 9.1 seconds FLUOROSCOPY IMAGES: 5 EXPOSURE DOSE: 1.60 mGy FINDINGS: Left-sided cystourethrogram. Subsequent images demonstrate placement of a left ureteral raquel nt, proximal portion appearing satisfactory positioning. The distal portion of the stent is not image d. IMPRESSION: Fluoroscopic assistance as above. ACT 112: Negative or not required by law. Electronically signed by: Gatito Polanco M.D. 11/28/2022 12:43 PM
--- NOTE | 2022-11-28 12:57 | Anesthesiology Progress Note ---
Date of Service November 28, 2022 Anesthesia Post Procedure Vital Signs Vital Signs: Temp Pulse Pulse Pulse Resp BP BP 11/28/22 12:50 79 14 109/85 11/28/22 12:40 36.5 C 80 14 117/77 11/28/22 12:30 81 15 113/75 11/28/22 12:21 36.0 C L 88 14 128/78 11/28/22 11:17 36.9 C 93 H 18 126/75 11/28/22 08:54 78 11/28/22 09:00 85 16 118/88 11/28/22 07:00 88 18 116/79 11/28/22 04:48 93 H 20 129/84 11/28/22 03:07 11/28/22 02:55 92 H 11/28/22 02:40 36.3 C L 103 H 24 146/83 H Pulse Ox O2 Del Method O2 Flow Rate 11/28/22 12:50 97 Room Air 11/28/22 12:40 97 Room Air 11/28/22 12:30 100 Oxymask 5 11/28/22 12:21 100 Oxymask 6 11/28/22 11:17 99 Room Air 11/28/22 08:54 11/28/22 09:00 99 Room Air 11/28/22 07:00 99 Room Air 11/28/22 04:48 100 Room Air 11/28/22 03:07 100 Room Air 11/28/22 02:55 11/28/22 02:40 100 Room Air Pain Intensity Left Abdomen: Pain Intensity: 5 Pelvic: Pain Intensity: 4 Transfer of Care Handoff Completed per policy Notes Mental Status: alert / awake / arousable and participated in evaluation Patient Amnestic to Procedure: Yes Nausea / Vomiting: adequately controlled Pain: adequately controlled Airway Patency, RR, SpO2: stable & adequate BP & HR: stable & adequate Hydration State: stable & adequate Anesthetic Complications: no major complications apparent and Pt Satisfied with anesthetic care
[2022-11-28] MEDS ORDERED: TAMSULOSIN HCL 0.4 MG CAP PO ONE (13:06)
[2022-11-28] MEDS ORDERED: HYDROmorphone INJ 0.5 MG/0.5 ML SYR IV PRN (13:06)
[2022-11-28] MEDS ORDERED: PROMETHAZINE HCL 12.5 MG in SODIUM CHLORIDE 0.9% 50 ML IV PRN (13:06)
[2022-11-28] MEDS: SODIUM CHLORIDE 0.9% 1000ML 1,000 ML IV SCH ×3 (13:14→23:18)
[2022-11-28] MEDS: HYDROmorphone INJ 1 MG/ML SYRINGE IV PRN ×2 (15:30→19:40)
[2022-11-28] MEDS ORDERED: KETOROLAC 30 MG/ML VIAL IV ONE (16:45)
[2022-11-28] MEDS ORDERED: TOPIRAMATE 50 MG TAB PO SCH (21:00)
[2022-11-28] MEDS ORDERED: ACETAMINOPHEN 325 MG TAB PO PRN (23:45)
[2022-11-28] MEDS: KETOROLAC TROMETHAMINE 15 MG/ML VIAL IV PRN (23:51)
[2022-11-29] MEDS: SODIUM CHLORIDE 0.9% 1000ML 1,000 ML IV SCH (03:58)
[2022-11-29] MEDS: KETOROLAC TROMETHAMINE 15 MG/ML VIAL IV PRN (06:37)
--- NOTE | 2022-11-29 07:53 | Urology Progress Note ---
I have discussed Ms. Crystal's case with YOMAIRA Amaya and agree with the above documentation. Urinary tract is now decompressed with ureteral stent in place. She will follow-up as an outpatient to coordinate definitive stone removal. Urology will sign off for now. Please call with questions or concerns. - Frederic Pradhan MD. Date of Service November 29, 2022 Assessment & Plan (1) Calculus of proximal left ureter: (2) Left flank pain: Plan 42yo/F admitted with intractable left flank pain secondary to an obstructing 9 mm left ureteral calculus. POD # 1 s/p Cystoscopy, Left Retrograde Pyelogram, Left ureteral stent Insertion. She is afebrile and hemodynamically stable. Urine culture pending. Intraop urine aspirate from left kidney is also pending. Having some stent discomfort and dysuria, received IV ketorolac this morning which helped. Will also add prn pyridium. Ok for discharge from perspective. Recommend d/c with course of PO antibiotics, Tamsulosin, prn Pyridium and prn pain medication for stent management. Plan to follow-up with urology outpatient as scheduled on 12/01/22 to arrange definitive stone treatment. Expected clinical course reviewed, all questions were answered. Urology will sign-off. Please contact us with any further questions, concerns, or changes in patient's status. Admission and Anticipated Discharge Date Admission Date: November 28, 2022 Subjective Patient seen and examined at bedside this AM. Awake, resting in bed on arrival. No acute distress. Reports stent discomfort, received Toradol this morning which helped some. Notes hematuria and dysuria with urination. No fevers. Denies nausea or vomiting. Review of Systems Constitutional: as per Subjective / HPI; no fever and no chills Gastrointestinal: as per Subjective / HPI; no nausea and no vomiting Genitourinary: as per Subjective / HPI, + dysuria and + hematuria Physical Exam Constitutional: well developed and well nourished; no acute distress Respiratory: normal respiratory effort; no respiratory distress and no labored breathing Skin: No visible rashes or lesions to exposed skin areas Neurologic: awake Psychiatric: A+Ox3, euthymic affect Results & Data ([facility]) Vital Signs (Past 12 Hours) Vital Signs Temp Pulse Resp BP Pulse Ox O2 Del Method 11/29/22 07:19 36.4 C L 95 H 18 122/81 100 Room Air 11/29/22 03:09 36.4 C L 94 H 20 118/75 99 Room Air 11/28/22 23:05 36.7 C 82 16 127/78 99 Room Air PG Care Time/CCT Total # of Minutes Spent Total Time Spent with Patient: Total time spent is greater than 50% in coordination of care (as documented) at patient's floor/unit and/or counseling patient: Coding Level of Care Code 46765 SUB INP/OBS CARE 2/35MIN Diagnoses Calculus of proximal left ureter N20.1 Left flank pain R10.9
[2022-11-29] MEDS ORDERED: PHENAZOPYRIDINE HCL 200 MG TAB PO PRN (08:08)
[2022-11-29] MEDS ORDERED: TOPIRAMATE 25 MG TAB PO SCH (09:00)
--- NOTE | 2022-12-04 14:09 | Discharge Summary ---
Date of Service November 29, 2022 Admission HPI Per Admitting Provider pt with left renal colic,significant pain. Patient did have 9 mm left UPJ stone with significant hydronephrosis. Patient denies infectious symptomatology. I consulted with urology which I spoke to personally emergency department we will take her for cystoscopy later today. Patient has a history of migraines which have been quiescent of late he is no family history of stones or personal history of stones Principal Diagnosis renal colic with hydronephrosis, s/p cystoscopy and ureteral stent Discharge Exam Pt had improved pain control and was stable for discharge Discharge Data Allergies Allergy/AdvReac Type Severity Reaction Status Date / Time No Known Drug Allergies Allergy Unknown Verified 12/01/22 12:56 Consultations 11/28/22 06:09 ED Decision to Admit Stat 11/28/22 13:06 Consult Urology Routine Procedures Performed Operation Date: 11/28/22 10:40 Actual Procedures p Cystoscopy, Left Retrograde Pyelogram, Left Stent Insertion(Left) - Frederic Pradhan MD Ordered Studies 11/28/22 03:02 CT abd pelvis wo con Stat 11/28/22 11:30 FL retrograde includes kub Routine Hospital Course (1) Calculus of proximal left ureter: Acute renal colic moderate risk patient was taken to the OR for cystoscopy for stent placement. Pain was controlled with parenteral opiates and hydration with IVF . Patient was placed on ceftriaxone perioperatively but not discharged on antibiotics PT was discharged on oxycodone, pyridium and zofran History of chronic migraine stable decision to continue on Topamax Total Time Total Time Spent Total Time Spent (In Minutes): less than 30 mintues were required to discharge Discharge Plan Discharge Items Patient Disposition: Home - Self-Care Reason For Visit: RENAL COLIC Discharge Diagnosis: renal colic, hydronephrosis s/p stent Condition on Discharge: Good Activity: Per Instructions section Activity Comment: off work rest and recover this week Non-emergency contact: Primary Care Provider and Urologist Call non-emergency contact if: your symptoms worsen Follow-up/Referrals: Frederic Pradhan MD [Physician] - 12/01/22 11:20 am Jose Worley DO [Primary Care Provider] - 12/08/22 1:00 pm (APPOINTMENT WITH [facility]) Diet: Regular Addtl Attending Provider Instructions: please watch for constipation with pain medicine use Addtl [employer] Provider Instructions: Please call the urology office at [phone] with any questions, concerns or need to reschedule appointments for any reason. We are happy to assist you. While you have a ureteral stent in place: Some discomfort is normal. Certain movements may trigger pain or a feeling that you need to urinate. You may also feel mild soreness or pressure before or during urination. Your urine may be slightly pink or red. This is due to bleeding caused by minor irritation from the stent. This may happen on and off while you have the stent, it is not harmful and is to be expected. Medication to help minimize discomfort or bladder spasms, or to prevent infection may be prescribed. Take this as directed. Drink plenty of fluids to help flush out your urinary tract. When to call [facility] at [phone]: Your urine contains heavy blood clots or you are unable to urinate You are constantly leaking urine Fever of 101F or higher, chills, nausea, or vomiting Your pain is not relieved with medication The end of the stent comes out of your urethra Pending Studies at Discharge: Yes (urine culture ) Stand-Alone Forms: [employer], Smoking Cessation Medications and DC Order Prescriptions: New phenazopyridine [Pyridium] 200 mg Tablet 200 mg PO BID PRN (Reason: bladder pain) Qty: 10 0RF ondansetron HCl 4 mg tablet 4 mg PO Q8H PRN (Reason: nausea and vomiting) Qty: 20 0RF oxycodone 5 mg tablet 5 mg PO TID PRN (Reason: pain) Qty: 20 0RF Rx Instructions: one or two pills every 8 hrs as needed Continued rizatriptan 10 mg tablet See Rx Instructions PO .COMPLEX Qty: 12 5RF Rx Instructions: take 1 tab at onset of headache; if no relief may repeat 1 tab after at least 2 hrs; max = 3 tabs/24 hr PO topiramate 50 mg tablet 50 mg PO HS Qty: 30 2RF Dupixent Syringe 300 mg/2 mL syringe 300 mg subcut .COMPLEX Qty: 4 11RF Rx Instructions: 300 mg subcut EVERY 2 WEEKS APPROVED GOOD 02/03/22-04/04/23 pantoprazole 40 mg tablet,delayed release (DR/EC) 40 mg PO BID Qty: 180 3RF Rx Instructions: TAKE 1 TABLET BY MOUTH TWICE A DAY hydrocortisone 2.5 % ointment 1 applic topical BID Qty: 28.35 1RF Rx Instructions: Apply to areas of the ears twice daily for up to 10 days as needed for flaring. No Action oxybutynin chloride 10 mg tablet extended release 24hr 10 mg PO DAILY Qty: 14 0RF topiramate 25 mg tablet 25 mg PO QAM tamsulosin 0.4 mg capsule 0.4 mg PO QPM Discharge Orders: Discharge Order (Routine); Ordered 11/29/22 Ordered By: Anthony Tellez/Other Patient Handouts: Having a Ureteral Stent Admission Data Admit Date/Time: 11/28/22 09:37 Attending Provider: Anthony Cabral Admit Provider: Anthony Cabral Primary Care Provider: Jose Worley Other Providers: Gamaliel Billings ; Courtney Alonzo Other Interventions: Discharge Summary Assessment (RN) Last Done: 11/29/22 09:42 Coding Level of Care Code 13367 IN/OBS DISCH 30 MIN/LESS Diagnoses Calculus of proximal left ureter N20.1
== END 2022-11-29 10:05 | disposition home or self-care (01) | DRG 661 ==
LOC: ED 02:37 → 3E 09:37 → INTOOBSV 09:37 → 3E 10:40